=== PATIENT | female | born 1960 | race Caucasian/White ===

== ENCOUNTER 2018-06-07 13:42 | Emergency (ER) | payer OTHER ==
[2018-06-07] MEDS ORDERED: IBUPROFEN 800 MG TABLET PO STA (14:37)
--- NOTE | 2018-06-07 14:38 | ED Physician Documentation ---
PD HPI UPPER EXT INJURY - Stated complaint Stated Complaint: R ELBOW INJ - Chief complaint Chief Complaint: Ext Problem - History obtained from History obtained from: Patient - History of Present Illness Location: Right (She fell while rollerskating on to the right elbow 2 days ago and has persistent pain there despite taking Tylenol. No other injuries.) Review of Systems Constitutional: reports: Reviewed and negative Cardiac: reports: Reviewed and negative Respiratory: reports: Reviewed and negative PD PAST MEDICAL HISTORY - Past Medical History Respiratory: Asthma - Past Surgical History Past Surgical History: Yes General: Cholecystectomy - Present Medications Home Medications: Ambulatory Orders Medication Instructions Recorded Confirmed HYDROcod/ACETAM 5/325 [Vicodin 1 tab PO DAILY 05/27/15 05/27/15 5/325] Ibuprofen [Motrin] 800 mg PO Q8H PRN #30 tablet 06/07/18 - Allergies Allergies/Adverse Reactions: Allergies Allergy/AdvReac Type Severity Reaction Status Date / Time morphine Allergy Intermediate Emesis Verified 06/07/18 13:58 - Social History Does the pt smoke?: Yes Smoking Status: Current every day smoker Does the pt drink ETOH?: No Does the pt have substance abuse?: No PD ED PE NORMAL - Vitals Vital signs reviewed: Yes - General General: Alert and oriented X 3, No acute distress - Neck Neck: Supple, no meningeal sign, No bony TTP - Extremities Extremities: Other (She is tender in the right supracondylar area without tenderness over the epicondyles. She cannot range the elbow at all and is holding it in slight flexion. She cannot extend it all the way. The shoulder is nontender.) - Neuro Neuro: Alert and oriented X 3, Normal speech Results - Vitals Vitals: Vital Signs - 24 hr 06/07/18 13:58 Temperature 36.6 C Heart Rate 55 L Respiratory 16 Rate Blood Pressure 111/62 O2 Saturation 98 Oxygen O2 Source Room air Departure - Departure Disposition: Home, Self Care Clinical Impression: Radial head fracture, closed Qualifiers: Encounter type: initial encounter Fracture alignment: nondisplaced Laterality: right Qualified Code(s): S52.124A - Nondisplaced fracture of head of right radius, initial encounter for closed fracture Condition: Good Record reviewed to determine appropriate education?: Yes Instructions: ED Fx Radial Head Follow-Up: [facility] [Provider Group] - Within 1 week Prescriptions: Ibuprofen [Motrin] 800 mg PO Q8H PRN #30 tablet PRN Reason: PAIN &/OR FEVER
--- NOTE | 2018-06-07 15:31 | XRAY Report ---
Reason: albow inj Procedure Date: 06/07/2018 Accession Number: [id number] / [id number] Procedure: XR - Elbow 3 View RT CPT Code: FULL RESULT: EXAM: RIGHT ELBOW RADIOGRAPHY EXAM DATE: 06/07/2018 03:17 PM. CLINICAL HISTORY: Elbow injury. Fell rollerskating. COMPARISON: None. TECHNIQUE: Three views. FINDINGS: Bones: There is a transverse mildly impacted fracture of the radial neck. No appreciable extension to the articular surface. No additional fractures appreciated. Joints: There is elevation of the extrasynovial fat pads consistent with hemarthrosis/effusion. Soft Tissues: Normal. No soft tissue swelling. IMPRESSION: Mildly impacted transverse fracture radial neck as described. RADIA
[2018-06-07 15:32] VITALS: BP 112/60
== END 2018-06-07 15:31 | disposition home or self-care (01) ==
LOC: ED 13:42
DX: S52.134A Nondisplaced fracture of neck of right radius, initial encounter for closed fracture (principal); V00.121A Fall from non-in-line roller-skates, initial encounter; F17.200 Nicotine dependence, unspecified, uncomplicated
CPT/HCPCS: 99283

== ENCOUNTER 2018-09-18 18:43 | Emergency (ER) | payer OTHER ==
--- NOTE | 2018-09-18 18:47 | ED Physician Documentation ---
History of Present Illness - Stated complaint Stated Complaint: SYNCOPE - History obtained from History obtained from: Patient, Family, Other (Witnessed in ED by MD and nurse) - Additonal information Additional information: Patient is a 57-year-old female who initially presented to the ED with her after he lacerated his hand. Patient was sitting at bedside with her when she appeared to stop breathing and became somewhat stiff in appearance with general tonic-clonic movements of arms and legs that lasted less than 30 seconds. Patient was not post ictal, nor did she bite her tongue or lose control of her bowels or bladder during this episode. Patient and state that she has difficulty seeing blood and has lost consciousness from the site of blood before. Patient has no known history of seizures. Patient is compliant with all home medications and reports that she ate earlier today. No other improving or worsening factors noted. Patient otherwise at her normal state of health without complaint, Including headache, vision changes, chest pain, abdominal pain, nausea, vomiting, urinary or stool changes, fever, difficulty breathing or cough. Review of Systems Cardiac: denies: Chest pain / pressure Neurologic: reports: Unresponsive PD PAST MEDICAL HISTORY - Past Medical History Cardiovascular: Coronary artery disease Respiratory: Asthma - Past Surgical History Past Surgical History: Yes General: Cholecystectomy - Present Medications Home Medications: Ambulatory Orders Medication Instructions Recorded Confirmed HYDROcod/ACETAM 5/325 [Vicodin 1 tab PO DAILY 05/27/15 05/27/15 5/325] Ibuprofen [Motrin] 800 mg PO Q8H PRN #30 tablet 06/07/18 - Allergies Allergies/Adverse Reactions: Allergies Allergy/AdvReac Type Severity Reaction Status Date / Time morphine Allergy Intermediate Emesis Verified 09/18/18 18:50 - Social History Does the pt smoke?: Yes Smoking Status: Current every day smoker Does the pt drink ETOH?: No Does the pt have substance abuse?: No PD ED PE NORMAL - General General: Alert and oriented X 3, No acute distress, Well developed/nourished - HEENT HEENT: Atraumatic, PERRL (Gross visual acuity intact. No nystagmus.), Moist mucous membranes, Pharynx benign, Other (No tongue biting) - Cardiac Cardiac: RRR, No murmur - Respiratory Respiratory: No respiratory distress, Clear bilaterally - Abdomen Abdomen: Normal bowel sounds, Soft, Non tender, Non distended - Derm Derm: Normal color, Warm and dry, No rash - Extremities Extremities: No deformity, No tenderness to palpate - Neuro Neuro: Alert and oriented X 3, No motor deficit, No sensory deficit - Psych Psych: Normal mood, Normal affect Results - Vitals Vitals: Vital Signs - 24 hr 09/18/18 09/18/18 09/18/18 18:49 19:00 20:29 Temperature 36.0 C L Heart Rate 67 68 Respiratory 18 18 18 Rate Blood Pressure 130/78 127/78 O2 Saturation 97 99 Oxygen O2 Source Room air - EKG (time done) 1850 Rate: Rate (enter#) (63) Rhythm: NSR Ischemia: Non specific changes - Labs Labs: Laboratory Tests 09/18/18 09/18/18 09/18/18 18:45 18:57 18:57 WBC 7.6 RBC 4.49 Hgb 13.7 Hct 40.2 MCV 89.4 MCH 30.4 MCHC 34.0 RDW 12.9 Plt Count 154 MPV 8.0 Neut # (Auto) 4.2 Lymph # (Auto) 2.4 Turner # (Auto) 0.9 Eos # (Auto) 0.1 Baso # (Auto) 0.0 Absolute Nucleated RBC 0.00 Nucleated RBC % 0.0 Sodium 138 Potassium 3.8 Chloride 103 Carbon Dioxide 26 Anion Gap 9.0 BUN 18 Creatinine 0.8 Estimated GFR (MDRD) 74 L Glucose 118 H POC Whole Bld Glucose 110 H Calcium 8.8 Total Bilirubin 0.7 AST 34 ALT 32 Alkaline Phosphatase 77 Troponin I Total Protein 7.0 Albumin 3.9 Globulin 3.1 Albumin/Globulin Ratio 1.3 Lipase 39 09/18/18 18:57 WBC RBC Hgb Hct MCV MCH MCHC RDW Plt Count MPV Neut # (Auto) Lymph # (Auto) Turner # (Auto) Eos # (Auto) Baso # (Auto) Absolute Nucleated RBC Nucleated RBC % Sodium Potassium Chloride Carbon Dioxide Anion Gap BUN Creatinine Estimated GFR (MDRD) Glucose POC Whole Bld Glucose Calcium Total Bilirubin AST ALT Alkaline Phosphatase Troponin I < 0.04 Total Protein Albumin Globulin Albumin/Globulin Ratio Lipase PD MEDICAL DECISION MAKING - ED course Complexity details: reviewed results, re-evaluated patient, considered differential, d/w patient, d/w family ED course: Patient's episode was directly witnessed by ER physician and nursing staff. Feel this is likely related to a vasovagal syncope from seeing blood. Patient has reported similar episodes in the past and these experiences. Do not feel patient experienced a true seizure, particularly given lack of postictal state, tongue biting, or incontinence. Patient did not sustain any trauma or injury. Do not feel patient requires CT imaging of head at this time. Patient also is otherwise asymptomatic and although she does have heart history, have low suspicion for ACS, SD, unstable angina at this time. Did obtain EKG and troponin, which both returned unremarkable. Blood glucose also obtained and within normal limits and do not feel hypoglycemia is likely cause. Remainder of screening lab work also returned to the unremarkable including no significant leukocytosis, anemia, electrolyte disturbance, acute kidney injury. Given patient's exam and lack of symptoms, also have low suspicion for other pathology including infection such as UTI or pneumonia, as well as PE. Patient continued to be monitored in ED without return of symptoms or other complaints. Feel that she is safe to discharge home with . Had extensive discussions regarding results and recommendations, including strict return precautions and appropriate follow-up. Both understand and are comfortable with this plan. Departure - Departure Disposition: 01 Home, Self Care Clinical Impression: Syncope Condition: Good Instructions: ED Syncope Vasovagal Follow-Up: your,doctor [Other] Comments: Please continue all home medications as previously instructed. Please stay hydrated and eat regular, healthy meals. Please contact your primary care physician and swager operator tomorrow to alert them to this incident in the ER and establish follow-up in the next 2-3 days. Return to ED sooner if experience recurrence of syncope or other concerns. Discharge Date/Time: 09/18/18 20:45
[2018-09-18] MEDS: SODIUM CHLORIDE 0.9% 1,000 ML IV ONE (19:02)
[2018-09-18 19:04] LABS: BASOPHILS % (AUTO) 0.6 %; EOSINOPHILS # (AUTO) 0.1 10^3/uL (0.0-0.7); EOSINOPHILS % (AUTO) 1.1 %; HGB - HEMOGLOBIN 13.7 g/dL (12.0-16.0); LYMPHOCYTES # (AUTO) 2.4 10^3/uL (1.5-3.5); LYMPHOCYTES % (AUTO) 31.6 %; MEAN CORPUSCULAR HEMOGLOBIN 30.4 pg (27.0-31.0); MEAN CORPUSCULAR VOLUME 89.4 fL (81.0-99.0); MONOCYTES # (AUTO) 0.9 10^3/uL (0.0-1.0); MONOCYTES % (AUTO) 11.5 %; NEUTROPHILS # (AUTO) 4.2 10^3/uL (1.5-6.6); NEUTROPHILS % (AUTO) 55.2 %; PLT - PLATELET COUNT 154 10^3/uL (130-450); RED BLOOD COUNT 4.49 10^6/uL (4.20-5.40); RED CELL DISTRIBUTION WIDTH 12.9 % (12.0-15.0); WHITE BLOOD COUNT 7.6 x10^3/uL (4.8-10.8)
[2018-09-18 19:17] LABS: ALBUMIN 3.9 g/dL (3.2-5.5); ALBUMIN/GLOBULIN RATIO 1.3 (1.0-2.2); BILIRUBIN,TOTAL 0.7 mg/dL (0.2-1.0); CALCIUM 8.8 mg/dL (8.5-10.3); CREATININE 0.8 mg/dL (0.4-1.0)
[2018-09-18 20:29] VITALS: BP 127/78
== END 2018-09-18 20:45 | disposition home or self-care (01) ==
LOC: ED 18:43
DX: R55 Syncope and collapse (principal); I25.10 Atherosclerotic heart disease of native coronary artery without angina pectoris; F17.200 Nicotine dependence, unspecified, uncomplicated
CPT/HCPCS: 36415; 80053; 83690; 84484; 85025; 93005; 96360; 99283; 99284

== ENCOUNTER 2020-09-30 11:20 | Outpatient (CLI) | payer OTHER ==
--- NOTE | 2020-09-30 17:02 | XRAY Report ---
PROCEDURE: Thoracic Spine 2 View INDICATIONS: BACK PAIN TECHNIQUE: 4 views of the thoracic spine were acquired. COMPARISON: None. FINDINGS: Bones: No fractures or dislocations. Mild dextroscoliosis of thoracic spine centered at T9 level is seen. Mild degenerative endplate changes in mid to lower thoracic spine is seen. No suspicious bony lesions. 12 pairs of ribs are noted, and appear intact where visualized. Soft tissues: No paravertebral stripe thickening. IMPRESSION: Very mild rightward scoliosis of lower thoracic spine centered at T9 level. Mild degenerative disc di sease in mid to lower thoracic spine. No compression fracture or spondylolisthesis. Reviewed by: Kingsley Zuniga MD on 09/30/2020 4:00 PM JESS Approved by: Kingsley Zuniga MD on 09/30/2020 4:00 PM JESS Station ID: [id number]
--- NOTE | 2020-09-30 17:03 | XRAY Report ---
PROCEDURE: Lumbar Spine 2 View INDICATIONS: BACK PAIN TECHNIQUE: 4 views of the lumbar spine were acquired. COMPARISON: None. FINDINGS: Bones: 5 [id number] vertebrae are present. There is mild leftward curvature of lumbar spine chana tered at L3 level. Age indeterminant anterior wedge compression deformity at L1 level is seen with up to 50% loss of L1 vertebral body height anteriorly. No other vertebral body compression fractures. No suspicious bony lesions. Soft tissues: Overlying bowel gas pattern is normal. No suspicious soft tissue calcifications. IMPRESSION: Age-indeterminate anterior wedge compression deformity at L1 level with up to 50% loss o f L1 vertebral body height anteriorly. Degenerative disc disease throughout lumbar spine. Mild leftwa rd scoliosis of lumbar spine centered at L3 level. Reviewed by: Kingsley Zuniga MD on 09/30/2020 4:02 PM JESS Approved by: Kingsley Zuniga MD on 09/30/2020 4:02 PM JESS Station ID: [id number]
== END 2020-09-30 11:21 | disposition home or self-care (01) ==
LOC: DI.N 11:20
PROVIDERS: ATTEND Nurse Practitioner Family
DX: M51.34 Other intervertebral disc degeneration, thoracic region (principal); M41.9 Scoliosis, unspecified; M48.56XA Collapsed vertebra, not elsewhere classified, lumbar region, initial encounter for fracture; M51.36 Other intervertebral disc degeneration, lumbar region

== ENCOUNTER 2020-11-11 10:30 | Outpatient (CLI) | payer OTHER ==
--- NOTE | 2020-11-11 17:24 | XRAY Report ---
PROCEDURE: Lumbar Spine Complete INDICATIONS: CLOSED WEDGE COMPRESSION FRACTURE TECHNIQUE: 4 views of the lumbar spine were acquired. COMPARISON: X-ray lumbar spine 09/30/2020 FINDINGS: Bones: 5 [id number] vertebrae are present. There is multilevel trace retrolisthesis. Mild left mast scoliotic curvature with apex at L3. Unchanged wedge compression deformity at L1. No new vertebr al body compression fractures. No suspicious bony lesions. Normal range of motion without dynamic i nstability. Soft tissues: Overlying bowel gas pattern is normal. No suspicious soft tissue calcifications. IMPRESSION: Unchanged L1 compression deformity. Reviewed by: Shahrzad Sarah MD on 11/11/2020 5:22 PM PDT Approved by: Shahrzad Sarah MD on 11/11/2020 5:22 PM PDT Station ID: [id number]
== END 2020-11-11 10:31 | disposition home or self-care (01) ==
LOC: DI.N 10:30
PROVIDERS: ATTEND Physician Assistant Medical
DX: S32.010D Wedge compression fracture of first lumbar vertebra, subsequent encounter for fracture with routine healing (principal)

== ENCOUNTER 2021-07-26 14:21 | Outpatient (CLI) | payer OTHER ==
--- NOTE | 2021-07-26 16:35 | DEXA Report ---
PROCEDURE: Dexa Spine and/or Hip INDICATIONS: POST MENOPAUSAL, CLOSED FX OF FIRST LUMBAR VERTEBR TECHNIQUE: Dual energy x-ray absorptiometry (DXA) was performed on a Reaction System. Regions measur ed are the AP Spine, femoral neck, and if needed forearm. COMPARISON: None. FINDINGS: Lumbar Spine: Bone Mineral Density 1.050 g/cm/cm,T score -1.1, osteopenia. Left Hip: Bone Mineral Density 0.640 g/cm/cm,T score -2.9, osteoporosis. Left Femoral Neck: Bone Mineral Density 0.559 g/cm/cm, T score -3.4, osteoporosis. (T score greater or equal to -1.0: NORMAL) (T score from -1.1 to -2.4: OSTEOPENIA) (T score less than or equal to -2.5 to: OSTEOPOROSIS) Impression: 1. Osteoporosis demonstrated in the left hip and femoral neck. 2. Osteopenia of the lumbar spine. Patients with diagnosis of osteoporosis or osteopenia should have regular bone mineral density assess ment. For those eligible for Medicare, routine testing is allowed once every 2 years. Testing frequ ency can be increased for patients who have rapidly progressing disease or for those who are receivin g medical therapy to restore bone mass. Reviewed by: Calvin Singh MD on 07/26/2021 4:34 PM PST Approved by: Calvin Singh MD on 07/26/2021 4:34 PM PST Station ID: [id number]
== END 2021-07-26 14:22 | disposition home or self-care (01) ==
LOC: DI 14:21
PROVIDERS: ATTEND Internal Medicine
DX: M81.0 Age-related osteoporosis without current pathological fracture (principal); Z78.0 Asymptomatic menopausal state

== ENCOUNTER 2022-08-26 14:14 | Outpatient (CLI) | payer OTHER ==
--- NOTE | 2022-08-26 15:18 | DEXA Report ---
PROCEDURE: Dexa Spine and/or Hip INDICATIONS: OSTEOPOROSIS TECHNIQUE: Dual energy x-ray absorptiometry (DXA) was performed on a Simparel System. Regions measur ed are the AP Spine, femoral neck, and if needed forearm. COMPARISON: DEXA 07/26/2021 FINDINGS: Lumbar Spine: Bone Mineral Density 1.121 g/cm/cm,T score -0.5, normal, significantly increased by 6.8% when comp ared to the DEXA from 07/26/2021 Left Femoral Neck: Bone Mineral Density 0.668 g/cm/cm, T score -2.7, osteoporosis. Left Hip: Bone Mineral Density 0.660 g/cm/cm,T score -2.8, osteoporosis, not significantly changed when compar ed to the exam from 07/26/2021. (T score greater or equal to -1.0: NORMAL) (T score from -1.1 to -2.4: OSTEOPENIA) (T score less than or equal to -2.5 to: OSTEOPOROSIS) Impression: 1.Bone mineral density within the osteoporosis range at the left hip and left femoral neck, not signi ficantly changed when compared to the DEXA from 07/26/2021. 2.Bone mineral density in the lumbar spine has increased when compared to the prior exam and is now w ithin normal limits. Patients with diagnosis of osteoporosis or osteopenia should have regular bone mineral density assess ment. For those eligible for Medicare, routine testing is allowed once every 2 years. Testing frequ ency can be increased for patients who have rapidly progressing disease or for those who are receivin g medical therapy to restore bone mass. Reviewed by: Jose Luis Summers MD on 08/26/2022 3:17 PM PST Approved by: Jose Luis Summers MD on 08/26/2022 3:17 PM PST Station ID: [id number]
== END 2022-08-26 14:15 | disposition home or self-care (01) ==
LOC: DI 14:14
PROVIDERS: ATTEND Internal Medicine
DX: M81.0 Age-related osteoporosis without current pathological fracture (principal)

== ENCOUNTER 2023-09-08 12:27 | Outpatient (CLI) | payer OTHER ==
[2023-09-08 18:41] LABS: CALCIUM 9.2 mg/dL (8.5-10.3); CREATININE 0.9 mg/dL (0.6-1.3); POTASSIUM 4.4 mmol/L (3.5-4.5)
== END 2023-09-08 12:28 | disposition home or self-care (01) ==
LOC: LAB.N 12:27
PROVIDERS: ATTEND Nurse Practitioner Family
DX: I25.10 Atherosclerotic heart disease of native coronary artery without angina pectoris (principal); Z95.5 Presence of coronary angioplasty implant and graft; I25.5 Ischemic cardiomyopathy; I47.20 Ventricular tachycardia, unspecified
CPT/HCPCS: 36415; 80048